=== PATIENT | female | born 1995 | race Two or more races ===

== ENCOUNTER 2020-02-25 03:36 | Emergency (ER) | payer OTHER, MEDICAID ==
[~2020-02-25] VITALS: Ht 154.9 cm; Wt 88.9 kg
[2020-02-25] MEDS ORDERED: KETOROLAC TROMETH 60MG/2ML VIAL IM ONE (07:45)
[2020-02-25 08:26] VITALS: BP 120/81
== END 2020-02-25 08:27 | disposition home or self-care (01) ==
LOC: EDBD 03:36 → ER 03:39
DX: S93.401A Sprain of unspecified ligament of right ankle, initial encounter (principal); S20.212A Contusion of left front wall of thorax, initial encounter; V49.9XXA Car occupant (driver) (passenger) injured in unspecified traffic accident, initial encounter; Y93.89 Activity, other specified; Y92.89 Other specified places as the place of occurrence of the external cause; Y99.8 Other external cause status
CPT/HCPCS: 29515; 73610; 96372; 99283; J1885